=== PATIENT | female | born 1940 | race Caucasian/White ===

== ENCOUNTER 2019-05-10 14:06 | Emergency (ER) | payer MEDICARE, BC ==
[~2019-05-10] VITALS: Ht 160 cm; Wt 66.7 kg
--- NOTE | 2019-05-10 14:10 | NUR ---
PT BIBRA FROM HOME C/O NOSE BLEEDING STARTED 2 HRS AGO AFTER SNEEZING, PT IS AAOX4, NOT IN RESPIRATORY DISTRESS, HOOKED TO MONITOR, KEPT RESTED AND COMFORTABLE, WILL CONTINUE TO MONITOR.
[2019-05-10] MEDS ORDERED: PHENYLEPHRINE 0.5% NASAL SPRAY 15 ML BOTTLE NS ONE (14:26)
[2019-05-10] MEDS ORDERED: OXYMETAZOLINE HCL NASAL SPRAY 30 ML BOTTLE NS ONE ×2 (14:30→14:50)
--- NOTE | 2019-05-10 14:30 | NUR ---
SEEN AND EXAMINED BY .
--- NOTE | 2019-05-10 15:06 | NUR ---
SPOKED TO PT [facility]ANCO LUND CONTACT # [phone]
[2019-05-10 17:09] VITALS: BP 134/82
--- NOTE | 2019-05-10 17:09 | NUR ---
Patient discharged to home in stable condition. Written and verbal after care instructions given. Patient verbalizes understanding of instruction.
== END 2019-05-10 17:09 | disposition home or self-care (01) ==
LOC: ER 14:10
DX: R04.0 Epistaxis (principal); I10 Essential (primary) hypertension; E78.00 Pure hypercholesterolemia, unspecified; E11.9 Type 2 diabetes mellitus without complications; K21.9 Gastro-esophageal reflux disease without esophagitis; Z88.8 Allergy status to other drugs, medicaments and biological substances; Z60.2 Problems related to living alone